=== PATIENT | male | born 1990 | race Caucasian/White ===

== ENCOUNTER → 2018-12-30 | Outpatient (REF) | payer OTHER ==
[2018-12-30 20:32] LABS: BASO % 0.4 % (0.0-1.0); EOS # 0.2 10^3/uL (0.0-0.5); EOS % 2.1 % (0.0-3.0); HEMOGLOBIN 13.7 g/dl (13.5-17.5); LYMPH # 2.6 10^3/uL (1.5-5.0); MEAN CORPUSCULAR HEMOGLOBIN 29.8 pg (27.0-33.0); MEAN CORPUSCULAR HGB CONC 32.6 g/dl (32.0-36.5); MEAN CORPUSCULAR VOLUME 91.5 fl (80.0-96.0); MONO # 0.7 10^3/uL (0.0-0.8); MONO % 6.8 % (0.0-5.0); NEUTROPHILS # 6.5 10^3/uL (1.5-8.5); NEUTROPHILS % 64.3 % (36.0-66.0); PLATELET COUNT, AUTOMATED 310 10^3/uL (150-450); RED BLOOD COUNT 4.59 10^6/uL (4.30-6.10)
[2018-12-30 21:02] LABS: BLOOD UREA NITROGEN 12 MG/DL (7-18); CALCIUM LEVEL 9.2 MG/DL (8.5-10.1); CARBON DIOXIDE LEVEL 29 MEQ/L (21-32); CHLORIDE LEVEL 104 MEQ/L (98-107); GLOMERULAR FILTRATION RATE > 60.0 (>60); GLUCOSE, FASTING 69 MG/DL (70-100); POTASSIUM SERUM 3.9 MEQ/L (3.5-5.1); SODIUM LEVEL 140 MEQ/L (136-145); URIC ACID 8.1 MG/DL (3.5-7.2)
== END ==
LOC: M SFHCLERA 15:41
PROVIDERS: ATTEND Nurse Practitioner Family
DX: M13.161 Monoarthritis, not elsewhere classified, right knee (principal)

== ENCOUNTER → 2018-12-30 | Outpatient (CLI) | payer OTHER ==
--- NOTE | 2018-12-30 15:23 | REP ---
Five views right knee: 12/30/2018. Indication: Right knee pain. Comparison: None. Findings: There is no acute fracture, subluxation or dislocation. Joint space height is maintained. No significant osteoarthritic abnormalities or erosive lesions are detected. There is no significant joint effusion. Impression: No acute right knee osseous injury. Electronically Signed by Tyler White DO 12/30/2018 03:14 P
== END ==
LOC: M LRY 14:28
PROVIDERS: ATTEND Nurse Practitioner Family
DX: M25.561 Pain in right knee (principal)

== ENCOUNTER → 2019-04-16 | Outpatient (CLI) | payer OTHER ==
--- NOTE | 2019-04-16 10:14 | REP ---
Clinical: Trauma. Technique: AP, lateral, bilateral oblique views of the left ankle. Findings: Lateral swelling consist with inversion injury. No acute fracture or dislocation. Ankle mortise intact. Impression: Swelling. No acute fracture. Electronically Signed by Jose Miguel Brown MD 04/16/2019 10:05 A
== END ==
LOC: M LRY 09:43
PROVIDERS: ATTEND Nurse Practitioner Family
DX: S99.912A Unspecified injury of left ankle, initial encounter (principal); Y99.9 Unspecified external cause status; Y92.9 Unspecified place or not applicable; Y93.9 Activity, unspecified

== ENCOUNTER → 2020-03-04 | Outpatient (CLI) | payer OTHER ==
--- NOTE | 2020-03-04 11:58 | REP ---
INDICATION: DYSPNEA COMPARISON: None. TECHNIQUE: PA and lateral. FINDINGS: The mediastinum and cardiac silhouette are normal. The lung armstrong are clear and without acute consolidation, effusion, or pneumothorax. The skeletal structures are intact and normal. IMPRESSION: No acute cardiopulmonary process. <Electronically signed by Jose Miguel Brown > 03/04/20 [id number]
== END ==
LOC: M RAD 11:44
PROVIDERS: ATTEND Physician Assistant
DX: R06.00 Dyspnea, unspecified (principal)

== ENCOUNTER → 2020-03-22 | Outpatient (CLI) | payer OTHER ==
[~2020-03-22] MED LIST: METHACHOLINE KIT (J7674) INH ONE
--- NOTE | 2020-03-22 13:22 | PFTRPT ---
Height: 74.75 Inches Weight: 350.00 Lbs BSA: 2.78 Diagnosis: R06.00 DATE: 03/22/2020 ORDERED BY: RAMIREZ Cho QUALITY: Study of excellent technical quality. PROCEDURE: Under protocol, methacholine was administered. At a dose of 2.5 mg or 13.875 CDUs, a 27% decline in the FEV1 was noted. PC of 0.81 is significant. Flow rates did return to baseline post bronchodilator administration. IMPRESSION: Positive methacholine challenge study. MTDD
== END ==
LOC: M CARPUL 12:32
PROVIDERS: ATTEND Physician Assistant
DX: R06.00 Dyspnea, unspecified (principal)
CPT/HCPCS: 94070; 95070; J7674

== ENCOUNTER → 2022-01-02 | Outpatient (CLI) | payer OTHER | LOC: M PLAIMG 12-19 14:58 | PROVIDERS: ATTEND Psychiatry & Neurology Neurology | DX: R53.1 Weakness (principal); R20.0 Anesthesia of skin; M50.322 Other cervical disc degeneration at C5-C6 level; M50.323 Other cervical disc degeneration at C6-C7 level ==